=== PATIENT | male | born 1995 | race Caucasian/White ===

== ENCOUNTER 2021-03-10 21:16 | Emergency (ER) | payer OTHER ==
[2021-03-10 22:02] LABS: RED BLOOD COUNT 4.33 M/UL (4.20-5.50); WHITE BLOOD COUNT 12.6 K/UL (4.5-11.0)
[2021-03-10 22:21] LABS: BUN/CREATININE RATIO 14 (0-10)
[2021-03-11] MEDS ORDERED: BACTRIM DS TAB1 EACH PO (01:03)
== END 2021-03-11 01:38 | disposition home or self-care (01) ==
LOC: ER1 21:16
PROVIDERS: Emergency Medicine
DX: K61.1 Rectal abscess (principal); E11.9 Type 2 diabetes mellitus without complications; Z79.4 Long term (current) use of insulin; F17.200 Nicotine dependence, unspecified, uncomplicated; Z88.0 Allergy status to penicillin; Z91.012 Allergy to eggs
CPT/HCPCS: 10060; 46040; 72193; 80053; 83605; 85025; 87040; 99283; J2001; Q9967

== ENCOUNTER 2021-03-13 07:50 | Emergency (ER) | payer OTHER ==
[~2021-03-13 07:50] MED LIST: BACTRIM DS TAB1 EACH PO
== END 2021-03-13 09:34 | disposition home or self-care (01) ==
LOC: ER1 07:50
DX: L02.31 Cutaneous abscess of buttock (principal); E11.9 Type 2 diabetes mellitus without complications; Z79.4 Long term (current) use of insulin; Z88.8 Allergy status to other drugs, medicaments and biological substances
CPT/HCPCS: 99283